=== PATIENT | male | born 1975 | race Caucasian/White ===

== ENCOUNTER 2016-11-07 20:30 | Emergency (ER) | payer BC ==
[2016-11-07] MEDS ORDERED: Doxycycline 100 MG Cap PO ONE ×2 (20:31→21:34)
[2016-11-07 21:17] LABS: CHLORIDE,CL 99 mmol/L (101-111); SODIUM,NA 136 mmol/L (135-145)
[2016-11-07] MEDS ORDERED: Mupirocin Oint 22 GM Tube TOP ONE (21:34)
[2016-11-07] MEDS ORDERED: Insulin NPH/Insulin Regular,Human 70-30 100 Units/ML 10 ML Vial SUBCUT ONE (21:34)
[2016-11-07] MEDS ORDERED: cefTRIAXone 1 GM in Sodium Chloride 0.9% 50 ML IV ONE (21:34)
--- NOTE | 2016-11-07 21:38 | EDM.PDOC ---
ED HPI GENERAL MEDICAL PROBLEM - General Chief Complaint: Skin Complaint Stated Complaint: LEG HAS A CUT THAT IS NOT HEALED, [id number] Time Seen by Provider: 11/07/16 21:30 Source of Information: Reports: Patient History Limitations: Reports: No Limitations - History of Present Illness INITIAL COMMENTS - FREE TEXT/NARRATIVE: ED ambulatory with complaint of increasing redness to area on left lees, notes initial wound from scraping left lees on boat ladder approximately one month ago. Area has not healed. Areas to bilateral inner ankle at least one month old crusted, not healing but has been picking at them, Has not felt wll past few days feverish and chills. Notes is diabetic but diet controlled after losing 100 # over 2 years. Last A1c 9. - Related Data Allergies Allergy/AdvReac Type Severity Reaction Status Date / Time No Known Allergies Allergy Verified 11/07/16 20:44 Home Meds: Home Meds . [No Known Home Meds] 03/18/16 [History] Past Medical History HEENT History: Reports: None Cardiovascular History: Reports: None Respiratory History: Reports: Asthma Gastrointestinal History: Reports: None Genitourinary History: Reports: None Musculoskeletal History: Reports: None Neurological History: Reports: None Psychiatric History: Reports: None Endocrine/Metabolic History: Reports: Diabetes, Type II Hematologic History: Reports: None Immunologic History: Reports: None Oncologic (Cancer) History: Reports: None Dermatologic History: Reports: None - Infectious Disease History Infectious Disease History: Reports: Chicken Pox - Past Surgical History Head Surgeries/Procedures: Reports: None Social & Family History - Tobacco Use Smoking Status *Q: Never Smoker Second Hand Smoke Exposure: No - Caffeine Use Caffeine Use: Reports: Soda - Recreational Drug Use Recreational Drug Use: No ED ROS GENERAL - Review of Systems Review Of Systems: ROS reveals no pertinent complaints other than HPI. ED EXAM, SKIN/RASH Exam: See Below Exam Limited By: No Limitations General Appearance: Alert, No Apparent Distress Ears: Normal External Exam Throat/Mouth: Normal Inspection, Normal Voice Head: Atraumatic Neck: Normal Inspection Respiratory/Chest: No Respiratory Distress, Lungs Clear Cardiovascular: Normal Peripheral Pulses, Regular Rate, Rhythm Extremities: Redness (left lees) Neurological: Alert, Oriented, Normal Cognition Skin: Warm, Dry, Wound/Incision (left lees 1cm dark crusted central wound with 7cm circumfertial redness induration, no streaking slight sloughing of centralborders, .5mm round dark crusted areas to bilateral inner ankles without redness or swelling. ) Location, Skin: Lower Extremity, Right, Lower Extremity, Left Associated features: Warmth, Tenderness, Induration, Crusting. No: Weeping Course - Vital Signs Last Recorded V/S: Last Vital Signs Temp 98.6 F 11/07/16 20:51 Pulse 102 H 11/07/16 22:50 Resp 18 11/07/16 20:51 BP 161/94 H 11/07/16 22:50 Pulse Ox 96 11/07/16 20:51 - Orders/Labs/Meds Labs: Laboratory Tests 11/07/16 11/07/16 11/07/16 Range/Units 20:50 20:50 20:50 WBC 12.2 H (5.0-10.0) 10^3/uL RBC 5.31 (4.6-6.2) 10^6/uL Hgb 15.3 (14.0-18.0) g/dL Hct 43.1 (40.0-54.0) % MCV 81.2 (80-100) fL MCH 28.8 (27.0-34.0) pg MCHC 35.5 H (33.0-35.0) g/dL Plt Count 219 (150-450) 10^3/uL Neut % (Auto) 58.5 (42.2-75.2) % Lymph % (Auto) 24.9 (20.5-50.1) % [place] % (Auto) 12.8 H (2-8) % Eos % (Auto) 3.5 H (1.0-3.0) % Baso % (Auto) 0.3 (0.0-1.0) % Sodium 136 (135-145) mmol/L Potassium 3.9 (3.6-5.0) mmol/L Chloride 99 L (101-111) mmol/L Carbon Dioxide 26.0 (21.0-31.0) mmol/L Anion Gap 14.9 BUN 18 (7-18) mg/dL Creatinine 0.9 (0.6-1.3) mg/dL Est Cr Clr Drug Dosing TNP Estimated GFR (MDRD) > 60 BUN/Creatinine Ratio 20.00 Glucose 342 H (74-105) mg/dL POC Glucose (70-105) mg/dl Lactic Acid 1.1 (0.5-2.2) mmol/L Calcium 8.9 (8.4-10.2) mg/dl Total Bilirubin 0.7 (0.2-1.0) mg/dL AST 16 (10-42) IU/L ALT 20 (10-60) IU/L Alkaline Phosphatase 60 (42-121) IU/L Total Protein 7.3 (6.7-8.2) g/dl Albumin 3.7 (3.2-5.5) g/dl Globulin 3.6 Albumin/Globulin Ratio 1.03 11/07/16 Range/Units 22:22 WBC (5.0-10.0) 10^3/uL RBC (4.6-6.2) 10^6/uL Hgb (14.0-18.0) g/dL Hct (40.0-54.0) % MCV (80-100) fL MCH (27.0-34.0) pg MCHC (33.0-35.0) g/dL Plt Count (150-450) 10^3/uL Neut % (Auto) (42.2-75.2) % Lymph % (Auto) (20.5-50.1) % [place] % (Auto) (2-8) % Eos % (Auto) (1.0-3.0) % Baso % (Auto) (0.0-1.0) % Sodium (135-145) mmol/L Potassium (3.6-5.0) mmol/L Chloride (101-111) mmol/L Carbon Dioxide (21.0-31.0) mmol/L Anion Gap BUN (7-18) mg/dL Creatinine (0.6-1.3) mg/dL Est Cr Clr Drug Dosing Estimated GFR (MDRD) BUN/Creatinine Ratio Glucose (74-105) mg/dL POC Glucose 331 H (70-105) mg/dl Lactic Acid (0.5-2.2) mmol/L Calcium (8.4-10.2) mg/dl Total Bilirubin (0.2-1.0) mg/dL AST (10-42) IU/L ALT (10-60) IU/L Alkaline Phosphatase (42-121) IU/L Total Protein (6.7-8.2) g/dl Albumin (3.2-5.5) g/dl Globulin Albumin/Globulin Ratio Meds: Medications Discontinued Medications Generic Name Dose Route Start Last Admin Trade Name Leif PRN Reason Stop Dose Admin Doxycycline Hyclate 100 mg 11/07/16 21:34 11/07/16 21:47 Vibramycin PO 11/07/16 21:35 100 mg ONETIME ONE Administration Doxycycline Hyclate Confirm 11/07/16 22:00 11/07/16 22:03 Vibramycin Administered 11/07/16 22:01 Not Given Dose 100 mg .ROUTE .STK-MED ONE Doxycycline Hyclate 100 mg 11/07/16 20:31 Vibramycin PO 11/07/16 20:32 .STK-MED ONE Ceftriaxone Sodium 1 gm/ 50 mls @ 100 mls/hr 11/07/16 21:34 11/07/16 21:47 Sodium Chloride IV 11/07/16 22:03 100 mls/hr ONETIME ONE Administration Insulin Human Isoph/Insulin Regular 5 unit 11/07/16 21:34 11/07/16 21:48 Novolin 70-30 SUBCUT 11/07/16 21:35 5 units ONETIME ONE Administration Metoprolol Tartrate 2.5 mg 11/07/16 22:44 11/07/16 22:50 Lopressor IVPUSH 11/07/16 22:45 2.5 mg ONETIME ONE Administration Mupirocin 22 gm 11/07/16 21:34 11/07/16 22:03 Bactroban Oint TOP 11/07/16 21:35 Not Given ONETIME ONE Departure - Departure Time of Disposition: 21:38 Disposition: Home, Self-Care 01 Condition: Fair Clinical Impression: Skin infection Uncontrolled diabetes mellitus Qualifiers: Diabetes mellitus type: type 2 Diabetes mellitus complication status: with skin complications Diabetes mellitus complication detail: with other skin complication Diabetes mellitus local company intermodal truck driver insulin use: without local company intermodal truck driver use Qualified Code(s): E11.628 - Type 2 diabetes mellitus with other skin complications; E11.65 - Type 2 diabetes mellitus with hyperglycemia - Discharge Information Instructions: Diabetes and Foot Care Referrals: Laurel Fleming [Primary Care Provider] - Forms: ED Department Discharge Additional Instructions: clinic follow up this week doxycycline 100mg one twice daily for one week monitor diet until seen by PCP dressing change with antibacterial ointment 3 times daily urgent follow up if increased redness or fever
[2016-11-07] MEDS ORDERED: Doxycycline 100 MG Cap ONE (22:00)
[2016-11-07] MEDS ORDERED: Metoprolol Tartrate 5 MG/5 ML SDV IVPUSH ONE (22:44)
[2016-11-07 22:52] VITALS: BP 161/94
== END 2016-11-07 23:28 | disposition home or self-care (01) ==
LOC: DL.ED 20:30
DX: E11.628 Type 2 diabetes mellitus with other skin complications (principal); L08.9 Local infection of the skin and subcutaneous tissue, unspecified; J45.909 Unspecified asthma, uncomplicated
CPT/HCPCS: 36415; 80053; 82962; 83605; 85025; 87040; 96365; 96372; 96375; 99282; A9270; J0696; J1815; J7050; J3490

== ENCOUNTER 2019-09-17 21:55 | Emergency (ER) | payer BC ==
[2019-09-17 22:08] VITALS: BP 127/80; PULSE 102
[2019-09-17] MEDS ORDERED: Sodium Chloride 0.9% 10 ML Syringe FLUSH PRN (22:17)
--- NOTE | 2019-09-17 22:19 | EDM.PDOC ---
ED HPI GENERAL MEDICAL PROBLEM - General Chief Complaint: Neurological Problem Stated Complaint: ESPISODES OF NOT ABLE TO TALK, LIGHT HEADED Time Seen by Provider: 09/17/19 22:15 Source of Information: Reports: Patient, Family History Limitations: Reports: No Limitations - History of Present Illness INITIAL COMMENTS - FREE TEXT/NARRATIVE: Patient comes emergency department today with his with concerns of increasing confusion. The patient and the have noticed over the past month or so that every once in a while when he goes to do something he really does not know what he is doing. Like he told his that he was getting the debit card out of her purse when he grabbed the phone and told her that she could use the phone to put into the [employer] to get money. He realizes when these episodes are happening they are short and fleeting. He got into a car yesterday and he started to go somewhere and about 10 minutes later he suddenly could not remember why he was in the car where he was going or what he is doing. This is been going on for about a month just becoming more concerning and noticeable. He has no new change in his medication. No recent falls or trauma to his head. He was seen in the clinic earlier today for similar symptomatology and had laboratory evaluation as well as a CAT scan that was reported to them as normal and they do not know the laboratory results. He has had no fever or chills. No visual disturbances. No paresthesias of his upper or lower extremities. No change in the functionality of his upper or lower extremities. His memory seems to be intact otherwise he reports. - Related Data Allergies Allergy/AdvReac Type Severity Reaction Status Date / Time metformin Allergy Other Verified 09/17/19 23:33 sitagliptin Allergy Other Verified 09/17/19 23:33 Home Meds: Home Meds Albuterol [Take Home: Albuterol 18 GM, 1 INH Pack] 2 puff INH Q6HR PRN 09/17/19 [History] Aspirin [Aspirin EC] 81 mg PO DAILY 09/17/19 [History] Insulin Aspart [NovoLOG] 20 unit SQ TIDMEALS 09/17/19 [History] Insulin Glarg,Human.Rec.Analog [Lantus Solostar] 50 unit SUBCUT BEDTIME 09/17/19 [History] atorvaSTATin Calcium [Atorvastatin Calcium] 20 mg PO BEDTIME 09/17/19 [History] lisinopriL [Lisinopril] 10 mg PO DAILY 09/17/19 [History] Past Medical History HEENT History: Reports: None Cardiovascular History: Reports: None Respiratory History: Reports: Asthma Gastrointestinal History: Reports: None Genitourinary History: Reports: None Musculoskeletal History: Reports: None Neurological History: Reports: None Psychiatric History: Reports: None Endocrine/Metabolic History: Reports: Diabetes, Type II Hematologic History: Reports: None Immunologic History: Reports: None Oncologic (Cancer) History: Reports: None Dermatologic History: Reports: None - Infectious Disease History Infectious Disease History: Reports: Chicken Pox - Past Surgical History Head Surgeries/Procedures: Reports: None Social & Family History - Caffeine Use Caffeine Use: Reports: Soda ED ROS GENERAL - Review of Systems Review Of Systems: Comprehensive ROS is negative, except as noted in HPI. - Physical Exam Exam: See Below Exam Limited By: No Limitations General Appearance: Alert, WD/WN, No Apparent Distress Eye Exam: Bilateral Eye: EOMI, PERRL Ears: Normal External Exam, Normal Canal, Normal TMs Nose: Normal Inspection, Normal Mucosa Throat/Mouth: Normal Inspection, Normal Lips, Normal Oropharynx Head Exam: Atraumatic, Normocephalic Neck: Normal Inspection, Supple, Non-Tender Respiratory/Chest: No Respiratory Distress, Lungs Clear, Normal Breath Sounds, No Accessory Muscle Use, Chest Non-Tender Cardiovascular: Normal Peripheral Pulses, Regular Rate, Rhythm GI/Abdominal: Normal Bowel Sounds, Soft, Non-Tender (Male) Exam: Deferred Rectal (Males) Exam: Deferred Neuro Exam (Abbreviated): Alert, Oriented, CN II-XII Intact, Normal Cognition, Normal Gait, Normal Reflexes, No Motor/Sensory Deficits, Other (He able able to identify a pen and tell me what the pen is for. ). No: Inattentive, Confused, Disoriented, Slow to Respond, Memory Loss Remote Events, Memory Loss Recent Events, Abnormal Reflexes, Sensory/Motor Deficit DTR: 2+: Bicep (R), Bicep (L), Tricep (R), Tricep (L), Patella (R), Patella (L), Achilles (R), Achilles (L) Back Exam: Normal Inspection, Full Range of Motion Extremities: Normal Inspection, Normal Range of Motion, Non-Tender, Normal Capillary Refill Psychiatric: Normal Affect, Normal Mood Skin Exam: Warm, Dry, Intact, Normal Color, No Rash EKG INTERPRETATION EKG Date: 09/17/19 Time: 22:14 Rhythm: NSR Rate (Beats/Min): 45 [place]: Normal P-Wave: Present QRS: Normal ST-T: Normal QT: Normal Course - Vital Signs Last Recorded V/S: Last Vital Signs Temp 98.2 F 09/17/19 22:04 Pulse 102 H 09/17/19 22:04 Resp 18 09/17/19 22:04 BP 127/80 09/17/19 22:04 Pulse Ox 95 09/17/19 22:04 - Orders/Labs/Meds Orders: Active Orders 24 hr Category Date Time Status EKG Documentation Completion [RC] STAT Care 09/17/19 22:17 Active Peripheral IV Care [RC] . DIRECTED Care 09/17/19 22:17 Active Peripheral IV Insertion Adult [OM.PC] Stat Oth 09/17/19 22:17 Ordered Labs: Laboratory Tests 09/17/19 09/17/19 09/17/19 Range/Units 22:07 22:15 22:15 WBC 11.4 H (5.0-10.0) 10^3/uL RBC 5.55 (4.6-6.2) 10^6/uL Hgb 16.3 (14.0-18.0) g/dL Hct 46.4 (40.0-54.0) % MCV 83.6 (80-100) fL MCH 29.4 (27.0-34.0) pg MCHC 35.1 H (33.0-35.0) g/dL Plt Count 213 (150-450) 10^3/uL Neut % (Auto) 56.4 (42.2-75.2) % Lymph % (Auto) 22.4 (20.5-50.1) % [place] % (Auto) 11.0 H (2-8) % Eos % (Auto) 9.8 H (1.0-3.0) % Baso % (Auto) 0.4 (0.0-1.0) % Sodium 143 (136-145) mmol/L Potassium 3.6 (3.5-5.1) mmol/L Chloride 107 (98-107) mmol/L Carbon Dioxide 30 (21-32) mmol/L Anion Gap 9.6 (7-13) mEq/L BUN 20 H (7-18) mg/dL Creatinine 0.90 (0.70-1.30) mg/dL Est Cr Clr Drug Dosing 96.91 mL/min Estimated GFR (MDRD) > 60 BUN/Creatinine Ratio 22.2 (No establ ref range) Glucose 124 H (74-99) mg/dL POC Glucose 130 H (70-105) mg/dl Calcium 8.2 L (8.5-10.1) mg/dL Total Bilirubin 0.5 (0.2-1.0) mg/dL AST 27 (15-37) U/L ALT 79 H (16-63) U/L Alkaline Phosphatase 69 (46-116) U/L Ammonia (11-32) umol/L Troponin I < 0.017 (0.000-0.056) ng/mL Total Protein 6.5 (6.4-8.2) g/dL Albumin 3.3 L (3.4-5.0) g/dL Globulin 3.2 Albumin/Globulin Ratio 1.03 TSH, Ultra Sensitive 2.33 (0.36-3.74) uIU/mL Urine Color (YELLOW) Urine Appearance (CLEAR) Urine pH (5.0-9.0) Ur Specific [place] (1.005-1.030) Urine Protein (NEGATIVE) Urine Glucose (UA) (NEGATIVE) Urine Ketones (NEGATIVE) Urine Occult Blood (NEGATIVE) Urine Nitrite (NEGATIVE) Urine Bilirubin (NEGATIVE) Urine Urobilinogen (0.2-1.0) mg/dL Ur Leukocyte Esterase (NEGATIVE) Urine RBC /HPF Urine WBC (0-5/HPF) /HPF Ur Epithelial Cells (NOT SEEN) /HPF Amorphous Sediment (NOT SEEN) /HPF Urine Bacteria (0-FEW/HPF) /HPF Granular Casts (Auto) Fine Granular Casts (NOT SEEN) /LPF Urine Mucus (NOT SEEN) /LPF Urine Opiates Screen (NEGATIVE) Ur Oxycodone Screen (NEGATIVE) Urine Methadone Screen (NEGATIVE) Ur Barbiturates Screen (NEGATIVE) U Tricyclic Antidepress (NEGATIVE) Ur Phencyclidine Scrn (NEGATIVE) Ur Amphetamine Screen (NEGATIVE) U Methamphetamines Scrn (NEGATIVE) Urine MDMA Screen (NEGATIVE) U Benzodiazepines Scrn (NEGATIVE) Urine Cocaine Screen (NEGATIVE) U Marijuana (THC) Screen (NEGATIVE) Ethyl Alcohol < 3 (0) mg/dL 09/17/19 09/18/19 09/18/19 Range/Units 22:15 00:44 00:44 WBC (5.0-10.0) 10^3/uL RBC (4.6-6.2) 10^6/uL Hgb (14.0-18.0) g/dL Hct (40.0-54.0) % MCV (80-100) fL MCH (27.0-34.0) pg MCHC (33.0-35.0) g/dL Plt Count (150-450) 10^3/uL Neut % (Auto) (42.2-75.2) % Lymph % (Auto) (20.5-50.1) % [place] % (Auto) (2-8) % Eos % (Auto) (1.0-3.0) % Baso % (Auto) (0.0-1.0) % Sodium (136-145) mmol/L Potassium (3.5-5.1) mmol/L Chloride (98-107) mmol/L Carbon Dioxide (21-32) mmol/L Anion Gap (7-13) mEq/L BUN (7-18) mg/dL Creatinine (0.70-1.30) mg/dL Est Cr Clr Drug Dosing mL/min Estimated GFR (MDRD) BUN/Creatinine Ratio (No establ ref range) Glucose (74-99) mg/dL POC Glucose (70-105) mg/dl Calcium (8.5-10.1) mg/dL Total Bilirubin (0.2-1.0) mg/dL AST (15-37) U/L ALT (16-63) U/L Alkaline Phosphatase (46-116) U/L Ammonia 16 (11-32) umol/L Troponin I (0.000-0.056) ng/mL Total Protein (6.4-8.2) g/dL Albumin (3.4-5.0) g/dL Globulin Albumin/Globulin Ratio TSH, Ultra Sensitive (0.36-3.74) uIU/mL Urine Color Yellow (YELLOW) Urine Appearance Slightly cloudy (CLEAR) Urine pH 5.5 (5.0-9.0) Ur Specific [place] 1.025 (1.005-1.030) Urine Protein 100 H (NEGATIVE) Urine Glucose (UA) 500 H (NEGATIVE) Urine Ketones Negative (NEGATIVE) Urine Occult Blood Trace-lysed H (NEGATIVE) Urine Nitrite Negative (NEGATIVE) Urine Bilirubin Negative (NEGATIVE) Urine Urobilinogen 1.0 (0.2-1.0) mg/dL Ur Leukocyte Esterase Negative (NEGATIVE) Urine RBC 5-10 H /HPF Urine WBC 0-5 (0-5/HPF) /HPF Ur Epithelial Cells Rare (NOT SEEN) /HPF Amorphous Sediment Few (NOT SEEN) /HPF Urine Bacteria Few (0-FEW/HPF) /HPF Granular Casts (Auto) Few Fine Granular Casts Occasional H (NOT SEEN) /LPF Urine Mucus Few H (NOT SEEN) /LPF Urine Opiates Screen Negative (NEGATIVE) Ur Oxycodone Screen Negative (NEGATIVE) Urine Methadone Screen Negative (NEGATIVE) Ur Barbiturates Screen Negative (NEGATIVE) U Tricyclic Antidepress Negative (NEGATIVE) Ur Phencyclidine Scrn Negative (NEGATIVE) Ur Amphetamine Screen Negative (NEGATIVE) U Methamphetamines Scrn Negative (NEGATIVE) Urine MDMA Screen Negative (NEGATIVE) U Benzodiazepines Scrn Negative (NEGATIVE) Urine Cocaine Screen Negative (NEGATIVE) U Marijuana (THC) Screen Negative (NEGATIVE) Ethyl Alcohol (0) mg/dL Meds: Medications Discontinued Medications Generic Name Dose Route Start Last Admin Trade Name Leif PRN Reason Stop Dose Admin Sodium Chloride 10 ml 09/17/19 22:17 09/17/19 22:27 Saline Flush FLUSH 10 ml ASDIRECTED PRN Administration Keep Vein Open - Re-Assessments/Exams Free Text/Narrative Re-Assessment/Exam: 09/18/19 01:59 This patient's neurological exam and really his exam is rather unremarkable. His CT scan reviewed that was completed earlier today in the clinic is no bleeding no stroke no mass and is essentially normal. His ammonia is normal as well today just minimally elevated just by 2 points and I really do not feel that this would cause a symptomology. He does not appear encephalopathic at this time. His urine drug screen is negative. His EKG and troponin is negative as well. I am unsure of what is causing these episodic crescendoing episodes of memory loss or what they report is confusion. Going on for about a month. The next step for my guidance for him would be to discuss this again with his primary care tomorrow and consider MRI/MRA to look for structural abnormalities. If there is none next up would be EEG and echo carotid ultrasound and neuro logy. At this time I do not find any acute emergent neurological concerns in the emergency department. We will discharge him home with continued previous therapy. He and his are comfortable with this plan and his questions are answered. Departure - Departure Time of Disposition: 01:10 Disposition: Home, Self-Care 01 Clinical Impression: Episodic confusion - Discharge Information Instructions: Confusion Forms: ED Department Discharge Additional Instructions: Contact your PCP in the morning. Consider MRI MRA initially, then if negative EEG or Echo. Continue previous medications and therapies. Return to the ED if new or worsening symptoms. Sepsis Event Note (ED) - Evaluation Sepsis Screening Result: No Definite Risk - Focused Exam Vital Signs: Vital Signs Temp Pulse Resp BP Pulse Ox 09/17/19 22:04 98.2 F 102 H 18 127/80 95 - My Orders Last 24 Hours: My Active Orders 09/17/19 22:17 EKG Documentation Completion [RC] STAT Peripheral IV Care [RC] . DIRECTED Peripheral IV Insertion Adult [OM.PC] Stat - Assessment/Plan Last 24 Hours: My Active Orders 09/17/19 22:17 EKG Documentation Completion [RC] STAT Peripheral IV Care [RC] . DIRECTED Peripheral IV Insertion Adult [OM.PC] Stat Assessment:: Episodic confusion Plan: Contact your PCP in the morning. Consider MRI MRA initially, then if negative EEG or Echo. Continue previous medications and therapies. Return to the ED if new or worsening symptoms.
[2019-09-17 22:55] LABS: ANION GAP 9.6 mEq/L (7-13); CHLORIDE,CL 107 mmol/L (98-107); SODIUM,NA 143 mmol/L (136-145)
== END 2019-09-18 01:20 | disposition home or self-care (01) ==
LOC: DL.ED 21:55
DX: R41.0 Disorientation, unspecified (principal); J45.909 Unspecified asthma, uncomplicated; E11.9 Type 2 diabetes mellitus without complications; Z79.82 Long term (current) use of aspirin; Z79.4 Long term (current) use of insulin; Z79.899 Other long term (current) drug therapy; Z88.8 Allergy status to other drugs, medicaments and biological substances
CPT/HCPCS: 36415; 80053; 80305-QW; 80307; 81001; 82140; 82962; 84443; 84484; 85025; 93005; 99284-25

== ENCOUNTER 2020-05-25 16:12 | Emergency (ER) | payer BC, MEDICAID ==
--- NOTE | 2020-05-25 17:15 | EDM.PDOC ---
<Tresa Kumari - Last Filed: 05/25/20 17:08> ED HPI GENERAL MEDICAL PROBLEM - General Chief Complaint: Skin Complaint Stated Complaint: HEAD WOUND W/ STITCHES ISSUES Time Seen by Provider: 05/25/20 17:30 - Related Data Allergies Allergy/AdvReac Type Severity Reaction Status Date / Time metformin Allergy Other Verified 05/25/20 17:08 sitagliptin Allergy Other Verified 05/25/20 17:08 Home Meds: Home Meds Albuterol [Take Home: Albuterol 18 GM, 1 INH Pack] 2 puff INH Q6HR PRN 09/17/19 [History] Insulin Aspart [NovoLOG] 20 unit SQ TIDMEALS 09/17/19 [History] Insulin Glarg,Human.Rec.Analog [Lantus Solostar] 28 unit SUBCUT BEDTIME 09/17/19 [History] atorvaSTATin Calcium [Atorvastatin Calcium] 20 mg PO BEDTIME 09/17/19 [History] Aspirin 325 mg PO DAILY 05/25/20 [History] Escitalopram [Lexapro] 20 mg PO DAILY 05/25/20 [History] Multivitamin 1 tab PO DAILY 05/25/20 [History] Past Medical History HEENT History: Reports: None Cardiovascular History: Reports: None Respiratory History: Reports: Asthma Gastrointestinal History: Reports: None Genitourinary History: Reports: None Musculoskeletal History: Reports: None Neurological History: Reports: None Psychiatric History: Reports: None Endocrine/Metabolic History: Reports: Diabetes, Type II Hematologic History: Reports: None Immunologic History: Reports: None Oncologic (Cancer) History: Reports: None Dermatologic History: Reports: None - Infectious Disease History Infectious Disease History: Reports: Chicken Pox - Past Surgical History Head Surgeries/Procedures: Reports: None Social & Family History - Caffeine Use Caffeine Use: Reports: Soda Departure - Departure Disposition: Home, Self-Care 01 Clinical Impression: Wound infection after surgery - Discharge Information Instructions: Wound Infection, [id number] Forms: ED Department Discharge Care Plan Goals: The patient and his care provider were advised of the examination and lab results during the visit. A sample of the drainage was sent to lab for further analysis. The patient was given an oral dose of Keflex (500 mg) and Bactrim DS while in the ED. The patient was discharged with a script for Keflex (500 mg) #30 to take 1 by mouth 3 times per day for 10 days and Bactrim DS #20 to take 1 by mouth 2 times per day for 10 days. If the patient has any additional symptoms or concerns, the patient should either return to the ED or visit his primary care facility. Sepsis Event Note (ED) - Evaluation Sepsis Screening Result: No Definite Risk <Alhaji Schaefer - Last Filed: 05/28/20 20:04> ED HPI GENERAL MEDICAL PROBLEM - General Source of Information: Reports: Patient, Provider History Limitations: Reports: No Limitations - History of Present Illness INITIAL COMMENTS - FREE TEXT/NARRATIVE: This 44 yo male patient reports to the ED due to drainage and the wound opening up. The patient's care provider reports they noticed a large amount of yellow to green discharge from the area today (which is why they brought him to the Ed. The patient's original surgery was in [place] and they did not have any specific complications until the sutures were removed. Onset: Today Duration: Constant Location: Reports: Head Quality: Reports: Other Severity: Mild Improves with: Reports: None Worsens with: Reports: None Context: Reports: Other Associated Symptoms: Reports: No Other Symptoms ED ROS GENERAL - Review of Systems Review Of Systems: Comprehensive ROS is negative, except as noted in HPI. ED EXAM, SKIN/RASH Exam: See Below Exam Limited By: No Limitations General Appearance: Alert, WD/WN, Mild Distress Eye Exam: Bilateral Eye: EOMI, Normal Inspection, PERRL Ears: Normal External Exam, Normal Canal, Hearing Grossly Normal, Normal TMs Nose: Normal Inspection, Normal Mucosa, No Blood Throat/Mouth: Normal Inspection, Normal Lips, Normal Teeth, Normal Gums, Normal Oropharynx, Normal Voice, No Airway Compromise Neck: Normal Inspection, Supple, Non-Tender, Full Range of Motion Respiratory/Chest: No Respiratory Distress, Lungs Clear, Normal Breath Sounds, No Accessory Muscle Use, Chest Non-Tender Cardiovascular: Normal Peripheral Pulses, Regular Rate, Rhythm, No Edema, No Ga llop, No JVD, No Murmur, No Rub GI/Abdominal: Normal Bowel Sounds, Soft, Non-Tender, No Organomegaly, No Distention, No Abnormal Bruit, No Mass (Male) Exam: Deferred Rectal (Males) Exam: Deferred Back Exam: Normal Inspection, Full Range of Motion, NT Extremities: Normal Inspection, Normal Range of Motion, Non-Tender, No Pedal Edema, Normal Capillary Refill Neurological: Alert, Oriented, CN II-XII Intact, Normal Cognition, Normal Gait, Normal Reflexes, No Motor/Sensory Deficits Skin: Warm, Dry, Normal Color Location, Skin: Head Characteristics: Linear Associated features: Tenderness, Weeping Lymphatic: No Adenopathy Course - Vital Signs Last Recorded V/S: Last Vital Signs Temp 36.3 C 05/25/20 17:44 Pulse 89 05/25/20 17:44 Resp 20 05/25/20 17:44 BP 149/90 H 05/25/20 17:44 Pulse Ox 96 05/25/20 17:44 - Orders/Labs/Meds Labs: Laboratory Tests 05/25/20 05/25/20 05/25/20 Range/Units 17:52 17:52 17:52 WBC 9.2 (5.0-10.0) 10^3/uL RBC 5.00 (4.6-6.2) 10^6/uL Hgb 14.5 D (14.0-18.0) g/dL Hct 42.5 (40.0-54.0) % MCV 85.0 (80-100) fL MCH 29.0 (27.0-34.0) pg MCHC 34.1 (33.0-35.0) g/dL Plt Count 266 (150-450) 10^3/uL Neut % (Auto) 57.0 (42.2-75.2) % Lymph % (Auto) 25.4 (20.5-50.1) % [place] % (Auto) 10.8 H (2-8) % Eos % (Auto) 6.4 H (1.0-3.0) % Baso % (Auto) 0.4 (0.0-1.0) % Sodium 145 (136-145) mmol/L Potassium 5.2 H D (3.5-5.1) mmol/L Chloride 106 (98-107) mmol/L Carbon Dioxide 34 H (21-32) mmol/L Anion Gap 10.2 (7-13) mEq/L BUN 15 (7-18) mg/dL Creatinine 0.98 (0.70-1.30) mg/dL Est Cr Clr Drug Dosing TNP Estimated GFR (MDRD) > 60 BUN/Creatinine Ratio 15.3 (No establ ref range) Glucose 177 H (74-99) mg/dL Lactic Acid 1.0 (0.4-2.0) mmol/L Calcium 9.4 (8.5-10.1) mg/dL Total Bilirubin 0.4 (0.2-1.0) mg/dL AST 19 (15-37) U/L ALT 41 (16-63) U/L Alkaline Phosphatase 115 (46-116) U/L Total Protein 7.3 (6.4-8.2) g/dL Albumin 3.1 L (3.4-5.0) g/dL Globulin 4.2 Albumin/Globulin Ratio 0.74 Meds: Medications Discontinued Medications Generic Name Dose Route Start Last Admin Trade Name Freq PRN Reason Stop Dose Admin Bacitracin 1 dose 05/25/20 17:40 05/25/20 18:53 Bacitracin Oint 1 Gm U/D Packet TOP 05/25/20 17:41 1 dose ONETIME ONE Administration Cephalexin 500 mg 05/25/20 18:35 05/25/20 18:54 Cephalexin 500 Mg Cap PO 05/25/20 18:36 Not Given ONETIME ONE Trimethoprim/Sulfamethoxazole 1 tab 05/25/20 18:35 05/25/20 18:54 Sulfamethoxazole/Trimethoprim 800-160 Mg Tab PO 05/25/20 18:36 Not Given ONETIME ONE - Re-Assessments/Exams Free Text/Narrative Re-Assessment/Exam: 05/28/20 20:04 I have examined the patient. I have discussed findings and treatment plan with the PA student. I agree with the assessment and plan in the following students note. Departure - Departure Time of Disposition: 18:37 Condition: Fair - Discharge Information *PRESCRIPTION DRUG MONITORING PROGRAM REVIEWED*: Not Applicable *COPY OF PRESCRIPTION DRUG MONITORING REPORT IN PATIENT CAROL: Not Applicable
[2020-05-25] MEDS ORDERED: Bacitracin Oint 1 GM U/D Packet TOP ONE (17:40)
[2020-05-25 17:45] VITALS: BP 149/90; PULSE 89
[2020-05-25 18:16] LABS: ANION GAP 10.2 mEq/L (7-13); CHLORIDE,CL 106 mmol/L (98-107); SODIUM,NA 145 mmol/L (136-145)
[2020-05-25] MEDS ORDERED: Sulfamethoxazole/Trimethoprim 800-160 MG Tab PO ONE (18:35)
[2020-05-25] MEDS ORDERED: Cephalexin 500 MG Cap PO ONE (18:35)
== END 2020-05-25 18:50 | disposition home or self-care (01) ==
LOC: DL.ED 16:12
DX: T81.49XA Infection following a procedure, other surgical site, initial encounter (principal); J45.909 Unspecified asthma, uncomplicated; E11.9 Type 2 diabetes mellitus without complications; Z88.8 Allergy status to other drugs, medicaments and biological substances; Z79.82 Long term (current) use of aspirin; Z79.4 Long term (current) use of insulin; Z79.899 Other long term (current) drug therapy
CPT/HCPCS: 36415; 80053; 83605; 85025; 87040; 87070; 87077; 87186; 99283; 99284

== ENCOUNTER 2020-10-27 10:24 | Emergency (ER) | payer MEDICAID ==
--- NOTE | 2020-10-27 08:34 | EDM.PDOC ---
ED HPI GENERAL MEDICAL PROBLEM - General Chief Complaint: Head Injury Stated Complaint: IN [facility] [id number] Time Seen by Provider: 10/27/20 08:20 Source of Information: Reports: Patient, EMS, Family (Daughter) History Limitations: Reports: No Limitations - History of Present Illness INITIAL COMMENTS - FREE TEXT/NARRATIVE: This 45 yo male patient was brought to the ED by [facility] due to a ground level fall. The patient's daughter reports she was downstairs during the incident. The patient reports he got "caught in his wheelchair" this morning fell and hit his head. The patient reports he has some right sided rib pain at this time, but feels normal other than that. The patient's daughter reports when she got upstairs, the patient was lying on his side in the position. The patient reports no loss of consciousness before, during or after the fall. 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 Onset: Today Duration: Minutes: Location: Reports: Head, Chest (right rib pain) Quality: Reports: Ache, Dull Severity: Moderate Improves with: Reports: None Worsens with: Reports: None Context: Reports: Other Associated Symptoms: Reports: No Other Symptoms - Related Data Allergies Allergy/AdvReac Type Severity Reaction Status Date / Time metformin Allergy Other Verified 10/27/20 08:41 sitagliptin Allergy Other Verified 10/27/20 08:41 Home Meds: Home Meds Insulin Aspart [NovoLOG] 20 unit SQ TIDMEALS 09/17/19 [History] Insulin Glarg,Human.Rec.Analog [Lantus Solostar] 28 unit SUBCUT BEDTIME 09/17/19 [History] atorvaSTATin Calcium [Atorvastatin Calcium] 20 mg PO BEDTIME 09/17/19 [History] Aspirin 325 mg PO DAILY 05/25/20 [History] Escitalopram [Lexapro] 20 mg PO DAILY 05/25/20 [History] Multivitamin 1 tab PO DAILY 05/25/20 [History] Past Medical History HEENT History: Reports: None Cardiovascular History: Reports: None Respiratory History: Reports: Asthma Gastrointestinal History: Reports: None Genitourinary History: Reports: None Musculoskeletal History: Reports: None Neurological History: Reports: Other (See Below) 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 ED EXAM, HEAD INJURY - Physical Exam Exam: See Below Exam Limited By: No Limitations General Appearance: Alert, WD/WN, Mild Distress Head: Atraumatic, Normocephalic Nexus Criteria: No: Posterior, Midline Cervical Tenderness, Evidence of Intoxication, Altered Level of Consciousness, Focal Neurological Deficit, Painful Distraction Injuries Eyes: Bilateral Eye: EOMI, Normal Inspection, PERRL Ears: Normal External Exam, Normal Canal, Hearing Grossly Normal, Normal TMs Nose: Normal Inspection, Normal Mucousa, No Blood Throat/Mouth: Normal Inspection, Normal Lips, Normal Teeth, Normal Gums, Normal Oropharynx, Normal Voice, No Airway Compromise Neck: Non-Tender, Full Range of Motion, Normal Alignment, Normal Inspection Respiratory: No Respiratory Distress, Lungs Clear, Normal Breath Sounds, No Accessory Muscle Use, Chest Non-Tender Cardiovascular: Normal Peripheral Pulses, Regular Rate, Rhythm, No Edema, No Gallop, No JVD, No Murmur, No Rub GI/Abdominal Exam: Normal Bowel Sounds, Soft, Non-Tender, No Organomegaly, No Distention, No Abnormal Bruit, No Mass (Male) Exam: Deferred Rectal (Males) Exam: Deferred Back Exam: Full Range of Motion, Normal Inspection, NT Extremities: Other (Some chronic left hand and foot weakness) Neurologic: miller kiln dried salt II-XII nml As Tested, No Motor/Sensory Deficits, Alert, Normal Mood/Affect, Oriented x 3 Skin: Normal Color, Warm/Dry - Pratt Coma Score Best Eye Response (Pratt): (4) Open Spontaneously Best Verbal Response (Jameson): (5) Oriented Best Motor Response (Jameson): (6) Obeys Commands Pratt Total: 15 Course - Vital Signs Last Recorded V/S: Last Vital Signs Temp 97.8 F 10/27/20 08:24 Pulse 96 10/27/20 08:24 Resp 12 10/27/20 08:24 BP 114/75 10/27/20 08:24 Pulse Ox 95 10/27/20 08:24 - Orders/Labs/Meds Orders: Active Orders 24 hr Category Date Time Status Ribs 2V w Chest Rt [CR] Urgent Exams 10/27/20 08:29 Ordered - Radiology Interpretation Free Text/Narrative:: [facility] Final Radiology Report Call: [phone] assistance Online chat: [email or web address] Name: HAM HOUSTON Age: 45Years M Date: 10/27/2020 SSN: -- : 1975 Study: CT CERVICAL SPINE WO CONT Requesting Physician: Alhaji Schaefer Images: [phone] Addl Studies: Provided Clinical History: Ground level fall Contrast: Without Contrast Medium: Contrast Amount: Contrast Method: CONFIDENTIALITY STATEMENT This report is intended only for use by the referring physician, and only in accordance with law. If you received this in error, call [phone]. Page 1 of 1 PROCEDURE INFORMATION: Exam: CT Cervical Spine Without Contrast Exam date and time: 10/27/2020 8:58 AM Age: 45 years old Clinical indication: Other: Ground level fall TECHNIQUE: Imaging protocol: Computed tomography images of the cervical spine without contrast. Radiation optimization: All CT scans at this facility use at least one of these dose optimization techniques: automated exposure control; mA and/or kV adjustment per patient size (includes targeted exams where dose is matched to clinical indication); or iterative reconstruction. COMPARISON: CT Head wo Cont 09/17/2019 9:24 AM FINDINGS: Bones/joints: Hypertrophic changes are present involving the dens and anterior arch of C1. Discs/Spinal canal/Neural foramina: Mild disc space narrowing C3-C4. Lungs: Lung apices are normal. Soft tissues: Unremarkable. IMPRESSION: No evidence of cervical spine fracture. Remainder of findings as described above. Thank you for allowing us to participate in the care of your patient. Dictated and Authenticated by: Samra Cano MD 10/27/2020 9:36 AM Central Time ([place] & [place]) [facility] Final Radiology Report Call: [phone] assistance Online chat: [email or web address] Name: HAM HOUSTON Age: 45Years M Date: 10/27/2020 SSN: -- : 1975 Study: CT HEAD WO CONT Requesting Physician: Alhaji Schaefer Images: 175 Addl Studies: Provided Clinical History: Ground level fall Contrast: Without Contrast Medium: Contrast Amount: Contrast Method: Page 1 of 2 PROCEDURE INFORMATION: Exam: CT Head Without Contrast Exam date and time: 10/27/2020 8:58 AM Age: 45 years old Clinical indication: Other: Ground level fall TECHNIQUE: Imaging protocol: Computed tomography of the head without contrast. Radiation optimization: All CT scans at this facility use at least one of these dose optimization techniques: automated exposure control; mA and/or kV adjustment per patient size (includes targeted exams where dose is matched to clinical indication); or iterative reconstruction. Other technique: STROKE PROTOCOL was implemented. COMPARISON: CT Head wo Cont 09/17/2019 9:24 AM FINDINGS: Brain: Prominent sulci. Patchy hypodensity of the cerebral white matter which are nonspecific but likely secondary to microangiopathic changes. 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 Cerebral ventricles: The ventricles are prominent secondary to diffuse volume loss/atrophy. Paranasal sinuses: Mild mucoperiosteal thickening of the paranasal sinuses. Mastoid air cells: Visualized mastoid air cells are well aerated. Bones/joints: Interval appearance of postsurgical changes in the left hemisphere with left frontotemporal encephalomalacia and overlying craniotomy/craniectomy defects. Left MCA stent or clip is noted. Soft tissues: Unremarkable. IMPRESSION: 1. Interval appearance of postsurgical changes in the left hemisphere with left frontotemporal encephalomalacia and overlying craniotomy/craniectomy defects. Left MCA stent or clip is noted. HAM HOUSTON | Final Radiology Report CONFIDENTIALITY STATEMENT This report is intended only for use by the referring physician, and only in accordance with law. If you received this in error, call [phone]. Page 2 of 2 2. Remainder of findings as described above. ASSESSMENT: ASPECTS ([place] Stroke Program Early CT Score) is 10. Thank you for allowing us to participate in the care of your patient. Dictated and Authenticated by: Samra Cano MD 10/27/2020 9:31 AM Central Time ([place] & [place]) [facility] Final Radiology Report Call: [phone] assistance Online chat: [email or web address] Name: HAM HOUSTON Age: 45Years M Date: 10/27/2020 SSN: -- : 1975 Study: CR RIBS 2V W CHEST RT Requesting Physician: Alhaji Schaefer Images: 3 Addl Studies: Provided Clinical History: Ground level fall Contrast: Contrast Medium: Contrast Amount: Contrast Method: CONFIDENTIALITY STATEMENT This report is intended only for use by the referring physician, and only in accordance with law. If you received this in error, call [phone]. Page 1 of 1 PROCEDURE INFORMATION: Exam: XR Right Ribs with PA Chest Exam date and time: 10/27/2020 9:34 AM Age: 45 years old Clinical indication: Pain; Other: RT rib; Additional info: Ground level fall TECHNIQUE: Imaging protocol: XR Right ribs with PA chest. Views: 3 views COMPARISON: CT Cervical Spine wo Cont 10/27/2020 8:58 AM FINDINGS: Lungs: Unremarkable. No consolidation. Pleural spaces: Unremarkable. No pleural effusion. No pneumothorax. Heart/Mediastinum: Unremarkable. No cardiomegaly. Bones/joints: Unremarkable. IMPRESSION: No acute findings. Thank you for allowing us to participate in the care of your patient. Dictated and Authenticated by: Samra Cano MD 10/27/2020 10:14 AM Central Time ([place] & [place]) Departure - Departure Time of Disposition: 10:22 Disposition: Home, Self-Care 01 Condition: Fair Clinical Impression: Fall from ground level Right shoulder strain Qualifiers: Encounter type: initial encounter Qualified Code(s): S46.911A - Strain of unspecified muscle, fascia and tendon at shoulder and upper arm level, right arm, initial encounter Contusion of rib on right side Qualifiers: Encounter type: initial encounter Qualified Code(s): S20.211A - Contusion of right front wall of thorax, initial encounter - Discharge Information *PRESCRIPTION DRUG MONITORING PROGRAM REVIEWED*: Not Applicable *COPY OF PRESCRIPTION DRUG MONITORING REPORT IN PATIENT CAROL: Not Applicable Instructions: Muscle Strain, [id number], Rib Contusion Forms: ED Department Discharge Care Plan Goals: The patient and family were advised of the examination, lab, x-ray and CT results during the visit. The patient was encouraged to rest and relax over the next 24 hours. If the patient has any additional symptoms or concerns, the patient should either return to the emergency department or visit his primary care facility. Sepsis Event Note (ED) - Focused Exam Vital Signs: Vital Signs Temp Pulse Resp BP Pulse Ox 10/27/20 08:24 97.8 F 96 12 114/75 95 - My Orders Last 24 Hours: My Active Orders 10/27/20 08:29 Ribs 2V w Chest Rt [CR] Urgent - Assessment/Plan Last 24 Hours: My Active Orders 10/27/20 08:29 Ribs 2V w Chest Rt [CR] Urgent
[2020-10-27 08:41] VITALS: BP 114/75; PULSE 96
--- NOTE | 2020-10-27 09:31 | CT ---
PROCEDURE INFORMATION: Exam: CT Head Without Contrast Exam date and time: 10/27/2020 8:58 AM Age: 45 years old Clinical indication: Other: Ground level fall TECHNIQUE: Imaging protocol: Computed tomography of the head without contrast. Radiation optimization: All CT scans at this facility use at least one of these dose optimization techniques: automated exposure control; mA and/or kV adjustment per patient size (includes targeted exams where dose is matched to clinical indication); or iterative reconstruction. Other technique: STROKE PROTOCOL was implemented. COMPARISON: CT Head wo Cont 09/17/2019 9:24 AM FINDINGS: Brain: Prominent sulci. Patchy hypodensity of the cerebral white matter which are nonspecific but likely secondary to microangiopathic changes. 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 Cerebral ventricles: The ventricles are prominent secondary to diffuse volume loss/atrophy. Paranasal sinuses: Mild mucoperiosteal thickening of the paranasal sinuses. Mastoid air cells: Visualized mastoid air cells are well aerated. Bones/joints: Interval appearance of postsurgical changes in the left hemisphere with left frontotemporal encephalomalacia and overlying craniotomy/craniectomy defects. Left MCA stent or clip is noted. Soft tissues: Unremarkable. IMPRESSION: 1. Interval appearance of postsurgical changes in the left hemisphere with left frontotemporal encephalomalacia and overlying craniotomy/craniectomy defects. Left MCA stent or clip is noted. 2. Remainder of findings as described above. ASSESSMENT: ASPECTS ([place] Stroke Program Early CT Score) is 10.
--- NOTE | 2020-10-27 09:36 | CT ---
PROCEDURE INFORMATION: Exam: CT Cervical Spine Without Contrast Exam date and time: 10/27/2020 8:58 AM Age: 45 years old Clinical indication: Other: Ground level fall TECHNIQUE: Imaging protocol: Computed tomography images of the cervical spine without contrast. Radiation optimization: All CT scans at this facility use at least one of these dose optimization techniques: automated exposure control; mA and/or kV adjustment per patient size (includes targeted exams where dose is matched to clinical indication); or iterative reconstruction. COMPARISON: CT Head wo Cont 09/17/2019 9:24 AM FINDINGS: Bones/joints: Hypertrophic changes are present involving the dens and anterior arch of C1. Discs/Spinal canal/Neural foramina: Mild disc space narrowing C3-C4. Lungs: Lung apices are normal. Soft tissues: Unremarkable. IMPRESSION: No evidence of cervical spine fracture. Remainder of findings as described above.
--- NOTE | 2020-10-27 10:14 | CR ---
PROCEDURE INFORMATION: Exam: XR Right Ribs with PA Chest Exam date and time: 10/27/2020 9:34 AM Age: 45 years old Clinical indication: Pain; Other: RT rib; Additional info: Ground level fall TECHNIQUE: Imaging protocol: XR Right ribs with PA chest. Views: 3 views COMPARISON: CT Cervical Spine wo Cont 10/27/2020 8:58 AM FINDINGS: Lungs: Unremarkable. No consolidation. Pleural spaces: Unremarkable. No pleural effusion. No pneumothorax. Heart/Mediastinum: Unremarkable. No cardiomegaly. Bones/joints: Unremarkable. IMPRESSION: No acute findings.
== END 2020-10-27 10:50 | disposition home or self-care (01) ==
LOC: DL.ED 10:24
DX: S46.911A Strain of unspecified muscle, fascia and tendon at shoulder and upper arm level, right arm, initial encounter (principal); S20.211A Contusion of right front wall of thorax, initial encounter; R53.1 Weakness; J45.909 Unspecified asthma, uncomplicated; E11.9 Type 2 diabetes mellitus without complications; Z86.73 Personal history of transient ischemic attack (TIA), and cerebral infarction without residual deficits; Z88.8 Allergy status to other drugs, medicaments and biological substances; Z79.4 Long term (current) use of insulin; Z79.82 Long term (current) use of aspirin; Z79.899 Other long term (current) drug therapy; W05.0XXA Fall from non-moving wheelchair, initial encounter; Y92.009 Unspecified place in unspecified non-institutional (private) residence as the place of occurrence of the external cause
CPT/HCPCS: 70450; 71101-RT; 72125; 99283; 99284-25

== ENCOUNTER 2021-04-01 23:43 | Emergency (ER) | payer BC ==
[2021-04-02 00:41] LABS: ANION GAP 10.5 mEq/L (7-13); CHLORIDE,CL 103 mmol/L (98-107); SODIUM,NA 142 mmol/L (136-145)
[2021-04-02] MEDS ORDERED: Ketorolac 30 MG/ML SDV IVPUSH ONE (00:44)
[2021-04-02] MEDS ORDERED: Bacitracin Oint 1 GM U/D Packet TOP ONE (00:52)
[2021-04-02 00:58] VITALS: BP 113/80; PULSE 97
[2021-04-02] MEDS ORDERED: Doxycycline Monohydrate 100 MG Cap PO ONE (01:05)
== END 2021-04-02 01:52 | disposition home or self-care (01) ==
LOC: DL.ED 23:43
DX: T81.40XA Infection following a procedure, unspecified, initial encounter (principal); R51.9 Headache, unspecified; E11.40 Type 2 diabetes mellitus with diabetic neuropathy, unspecified; Z88.5 Allergy status to narcotic agent; Z88.8 Allergy status to other drugs, medicaments and biological substances; Z79.4 Long term (current) use of insulin; Z79.899 Other long term (current) drug therapy; Z86.73 Personal history of transient ischemic attack (TIA), and cerebral infarction without residual deficits
CPT/HCPCS: 36415; 70450; 80053; 80307; 83605; 83735; 84100; 84443; 85025; 86140; 87070; 87077; 87186; 93005; 96374; 99285; A9270; J1885

== ENCOUNTER 2021-04-15 17:59 | Emergency (ER) | payer BC ==
[2021-04-15] MEDS ORDERED: Metoclopramide 10 MG/2 ML SDV IVPUSH ONE (18:34)
[2021-04-15] MEDS ORDERED: HYDROmorphone 0.5 MG/0.5 ML Syringe IVPUSH ONE ×2 (18:40→20:28)
[2021-04-15 19:14] LABS: ANION GAP 7.9 mEq/L (7-13); CHLORIDE,CL 105 mmol/L (98-107); SODIUM,NA 139 mmol/L (136-145)
[2021-04-15 19:58] VITALS: BP 143/93
[2021-04-15 20:06] VITALS: PULSE 89
== END 2021-04-15 20:56 ==
LOC: DL.ED 17:59
DX: S72.001A Fracture of unspecified part of neck of right femur, initial encounter for closed fracture (principal); E11.40 Type 2 diabetes mellitus with diabetic neuropathy, unspecified; J45.909 Unspecified asthma, uncomplicated; Z86.73 Personal history of transient ischemic attack (TIA), and cerebral infarction without residual deficits; Z88.5 Allergy status to narcotic agent; Z88.8 Allergy status to other drugs, medicaments and biological substances; Z79.4 Long term (current) use of insulin; Z79.82 Long term (current) use of aspirin; Z79.899 Other long term (current) drug therapy; Z20.822 Contact with and (suspected) exposure to COVID-19; X50.1XXA Overexertion from prolonged static or awkward postures, initial encounter
CPT/HCPCS: 36415; 73502; 73552; 73560; 80053; 85025; 87635; 93005; 96374; 96375; 96376; 99285; J1170; J2765; J3360; U0002

== ENCOUNTER 2021-06-25 19:44 | Emergency (ER) | payer BC, MEDICAID ==
[2021-06-25] MEDS ORDERED: Acetaminophen/oxyCODONE 325-5 MG Tab PO ONE ×2 (19:45→21:46)
[2021-06-25] MEDS ORDERED: Cephalexin 500 MG Cap PO ONE (19:45)
[2021-06-25 21:38] VITALS: BP 156/93; PULSE 95
[2021-06-25] MEDS ORDERED: Ondansetron 4 MG Tab.DIS PO ONE (21:45)
[2021-06-25] MEDS ORDERED: Diphtheria,Pertussis(Acell),Tetanus Vaccine 0.5 ML Syringe IM ONE (22:30)
[2021-06-25] MEDS ORDERED: Bacitracin Oint 1 GM U/D Packet TOP ONE (22:33)
[2021-06-25] MEDS ORDERED: Cephalexin 500 MG Cap ONE (23:20)
[2021-06-25] MEDS ORDERED: Acetaminophen/oxyCODONE 325-5 MG Tab ONE (23:20)
== END 2021-06-25 23:27 | disposition home or self-care (01) ==
LOC: DL.ED 19:44
DX: S52.201A Unspecified fracture of shaft of right ulna, initial encounter for closed fracture (principal); E11.40 Type 2 diabetes mellitus with diabetic neuropathy, unspecified; J45.909 Unspecified asthma, uncomplicated; Z86.73 Personal history of transient ischemic attack (TIA), and cerebral infarction without residual deficits; Z88.5 Allergy status to narcotic agent; Z88.8 Allergy status to other drugs, medicaments and biological substances; Z79.4 Long term (current) use of insulin; Z79.82 Long term (current) use of aspirin; Z23 Encounter for immunization; Z79.899 Other long term (current) drug therapy; W01.0XXA Fall on same level from slipping, tripping and stumbling without subsequent striking against object, initial encounter
CPT/HCPCS: 29125; 73110-RT; 90471; 90715; 99283-25; A9270-GY

== ENCOUNTER 2022-07-13 18:22 | Observation (INO) | payer MEDICARE, MEDICAID ==
[2022-07-13] MEDS ORDERED: Sodium Chloride 0.9% 10 ML Syringe FLUSH PRN (19:12)
[2022-07-13] MEDS ORDERED: Acetaminophen 500 MG Tab ONE (19:21)
[2022-07-13] MEDS ORDERED: Acetaminophen 500 MG Tab PO ONE (19:23)
[2022-07-13] MEDS ORDERED: Sodium Chloride 0.9% 1,000 ML IV ONE ×2 (19:24→20:50)
[2022-07-13 19:25] LABS: BASOPHILS PERCENT AUTO 0.3 % (0.0-1.0); EOSINOPHILS PERCENT AUTO 0.9 % (1.0-3.0); HEMATOCRIT 42.2 % (40.0-54.0); HEMOGLOBIN 14.5 g/dL (14.0-18.0); LYMPHOCYTES PERCENT AUTO 19.8 % (20.5-50.1); MEAN CORPUSCULAR HEMOGLOBIN 29.4 pg (27.0-34.0); MEAN CORPUSCULAR HGB CONC 34.4 g/dL (33.0-35.0); MEAN CORPUSCULAR VOLUME 85.6 fL (80-100); MONOCYTES PERCENT AUTO 14.3 % (2-8); NEUTROPHILS PERCENT AUTO 64.7 % (42.2-75.2); PLATELET COUNT,PLT 246 10^3/uL (150-450); RED BLOOD CELL COUNT 4.93 10^6/uL (4.6-6.2); WHITE BLOOD CELL COUNT,WBC 10.5 10^3/uL (5.0-10.0)
[2022-07-13 19:46] LABS: ALBUMIN 2.8 g/dL (3.4-5.0); ANION GAP 11.2 mEq/L (7-13); BILIRUBIN TOTAL 0.8 mg/dL (0.2-1.0); C-REACTIVE PROTEIN 9.7 mg/dL (0.0-0.9); CALCIUM 8.4 mg/dL (8.5-10.1); CREATININE 1.23 mg/dL (0.70-1.30); EST CRCL DRUG DOSING (CG) 71.83 mL/min; POTASSIUM,K 4.2 mmol/L (3.5-5.1); PROTEIN TOTAL,TP 7.2 g/dL (6.4-8.2)
[2022-07-13 19:47] LABS: A/G RATIO 0.64
[2022-07-13 20:05] LABS: APPEARANCE,URINE CLEAR (CLEAR); BILIRUBIN,URINE NEGATIVE (NEGATIVE); COLOR,URINE YELLOW (YELLOW); GLUCOSE,URINE 250 (NEGATIVE); KETONES,URINE NEGATIVE (NEGATIVE); LEUKOCYTE ESTERASE,URINE NEGATIVE (NEGATIVE); NITRITE,URINE NEGATIVE (NEGATIVE); OCCULT BLOOD,URINE MODERATE (NEGATIVE); PH,URINE 5.5 (5.0-9.0); PROTEIN,URINE 100 (NEGATIVE)
[2022-07-13 20:12] LABS: LACTIC ACID 1.1 mmol/L (0.4-2.0)
[2022-07-13 20:19] LABS: AMORPHOUS SEDIMENT,URINE FEW /HPF (NOT SEEN); BACTERIA,URINE MODERATE /HPF (0-FEW/HPF); EPITHELIAL CELLS,URINE FEW /HPF (NOT SEEN); MUCUS,URINE FEW /LPF (NOT SEEN); WBC,URINE 0-5 /HPF (0-5/HPF)
[2022-07-13] MEDS ORDERED: Ibuprofen 800 MG Tab PO ONE (20:42)
[2022-07-13] MEDS ORDERED: Glucagon,Human Recombinant 1 MG Vial IM PRN ×2 (23:28→23:30)
[2022-07-13] MEDS ORDERED: 50% Dextrose in Water 50 ML Syringe IVPUSH PRN ×2 (23:28→23:30)
[2022-07-13] MEDS ORDERED: Ondansetron 4 MG/2 ML SDV IVPUSH PRN (23:32)
[2022-07-13] MEDS ORDERED: Docusate Sodium 100 MG Cap PO PRN (23:32)
[2022-07-13] MEDS ORDERED: Acetaminophen/oxyCODONE 325-5 MG Tab PO PRN (23:32)
[2022-07-13] MEDS ORDERED: Acetaminophen 325 MG Tab PO PRN (23:32)
[2022-07-13] MEDS ORDERED: Bisacodyl 5 MG Tab PO PRN (23:32)
[2022-07-14 06:23] LABS: BASOPHILS PERCENT AUTO 0.5 % (0.0-1.0); EOSINOPHILS PERCENT AUTO 4.6 % (1.0-3.0); HEMATOCRIT 39.8 % (40.0-54.0); HEMOGLOBIN 13.2 g/dL (14.0-18.0); MEAN CORPUSCULAR HEMOGLOBIN 29.3 pg (27.0-34.0); MEAN CORPUSCULAR HGB CONC 33.2 g/dL (33.0-35.0); MEAN CORPUSCULAR VOLUME 88.2 fL (80-100); MONOCYTES PERCENT AUTO 17.2 % (2-8); NEUTROPHILS PERCENT AUTO 53.7 % (42.2-75.2); PLATELET COUNT,PLT 204 10^3/uL (150-450); RED BLOOD CELL COUNT 4.51 10^6/uL (4.6-6.2); WHITE BLOOD CELL COUNT,WBC 8.3 10^3/uL (5.0-10.0)
[2022-07-14] MEDS: buPROPion 150 MG Tab.ER PO SCH (08:10)
[2022-07-14] MEDS: Aspirin 325 MG Tab PO SCH (08:11)
[2022-07-14] MEDS: Enoxaparin 40 MG/0.4 ML Syringe SUBCUT SCH (08:11)
[2022-07-14] MEDS: Escitalopram 10 MG Tab PO SCH (08:11)
[2022-07-14] MEDS: atorvaSTATin 20 MG Tab PO SCH (08:11)
[2022-07-14] MEDS: Multivitamin Tab PO SCH (08:11)
[2022-07-14] MEDS: Insulin Lispro 100 Units/ML 3 ML Vial SUBCUT SCH ×3 (08:12→17:30)
[2022-07-14] MEDS: Midodrine 2.5 MG Tab PO SCH ×3 (08:13→17:29)
[2022-07-14] MEDS ORDERED: RISEDRONATE SODIUM 5 MG PO SCH (09:00)
[2022-07-14] MEDS ORDERED: Bacitracin/Neomycin/Polymyxin B Oint 28.4 GM Tube TOP PRN (09:04)
[2022-07-14] MEDS: Loratadine 10 MG Tab PO SCH (09:08)
[2022-07-14] MEDS ORDERED: Insulin Glarg,Human.Rec.Analog 100 Unit/ML SUBCUT SCH (21:00)
[2022-07-15] MEDS: Midodrine 2.5 MG Tab PO SCH (08:11)
[2022-07-15] MEDS: Insulin Lispro 100 Units/ML 3 ML Vial SUBCUT SCH (08:11)
[2022-07-15] MEDS: Aspirin 325 MG Tab PO SCH (08:12)
[2022-07-15] MEDS: buPROPion 150 MG Tab.ER PO SCH (08:12)
[2022-07-15] MEDS: atorvaSTATin 20 MG Tab PO SCH (08:12)
[2022-07-15] MEDS: Escitalopram 10 MG Tab PO SCH (08:12)
[2022-07-15] MEDS: Multivitamin Tab PO SCH (08:12)
[2022-07-15] MEDS: Loratadine 10 MG Tab PO SCH (08:12)
[2022-07-15] MEDS: Enoxaparin 40 MG/0.4 ML Syringe SUBCUT SCH (08:12)
[2022-07-15 10:54] VITALS: BP 145/82; PULSE 86
== END 2022-07-15 10:38 | disposition home or self-care (01) ==
LOC: DL.ED 18:22 → DL.MS 20:57 → DL.ED 21:20
PROVIDERS: ADMIT Internal Medicine; ATTEND Internal Medicine
DX: E11.621 Type 2 diabetes mellitus with foot ulcer (principal); L97.519 Non-pressure chronic ulcer of other part of right foot with unspecified severity; E11.319 Type 2 diabetes mellitus with unspecified diabetic retinopathy without macular edema; E11.40 Type 2 diabetes mellitus with diabetic neuropathy, unspecified; E11.51 Type 2 diabetes mellitus with diabetic peripheral angiopathy without gangrene; I95.9 Hypotension, unspecified; J45.909 Unspecified asthma, uncomplicated; M25.471 Effusion, right ankle; S92.511A Displaced fracture of proximal phalanx of right lesser toe(s), initial encounter for closed fracture; Z79.4 Long term (current) use of insulin; Z79.899 Other long term (current) drug therapy; Z79.82 Long term (current) use of aspirin; Z88.8 Allergy status to other drugs, medicaments and biological substances; Z86.16 Personal history of COVID-19; Z86.73 Personal history of transient ischemic attack (TIA), and cerebral infarction without residual deficits
CPT/HCPCS: 36415; 73610-RT; 73630-RT; 80053; 80202; 81001; 82947; 83605; 84145; 85025; 85651; 86140; 87040; 87070; 87077; 87186; 96361; 96365; 96366; 96372; 96374; 96376; 99222; 99232; 99239; 99284; 99284-25; A9270-GY; G0378; J1650; J1815-GY; J3370; J3490; J7030; J7040; J7050

== ENCOUNTER 2022-09-18 03:54 | Emergency (ER) | payer MEDICARE, MEDICAID ==
[2022-09-18 04:19] VITALS: BP 151/84; PULSE 98
[2022-09-18] MEDS: Morphine 2 MG/ML SYRINGE IM ONE (04:48)
[2022-09-18] MEDS: Ketorolac 30 MG/ML SDV IM ONE (05:58)
[2022-09-18] MEDS: Take Home: Acetaminophen/oxyCODONE 325-5 MG, 5 Tab Pack PO ONE (06:08)
== END 2022-09-18 06:42 | disposition home or self-care (01) ==
LOC: DL.ED 03:54
DX: M25.551 Pain in right hip (principal); E11.40 Type 2 diabetes mellitus with diabetic neuropathy, unspecified; E11.319 Type 2 diabetes mellitus with unspecified diabetic retinopathy without macular edema; J45.909 Unspecified asthma, uncomplicated; Z86.73 Personal history of transient ischemic attack (TIA), and cerebral infarction without residual deficits; Z86.16 Personal history of COVID-19; W01.0XXA Fall on same level from slipping, tripping and stumbling without subsequent striking against object, initial encounter
CPT/HCPCS: 73502; 96372; 99284; A9270; J1885; J2270

== ENCOUNTER 2024-04-30 21:51 | Emergency (ER) | payer MEDICAID, MEDICARE ==
[2024-04-30 22:05] VITALS: BP 123/87; PULSE 112
[2024-04-30] MEDS: Bacitracin Oint 1 GM U/D Packet TOP ONE (22:15)
[2024-04-30] MEDS: Lidocaine 1% 5 ML VIAL ONE (22:21)
[2024-04-30] MEDS: Lidocaine 1% 5 ML VIAL INJECT ONE ×2 (22:26→22:38)
[2024-04-30] MEDS: Diphtheria,Pertussis(Acell),Tetanus Vaccine 0.5 ML Syringe IM ONE (22:26)
== END 2024-04-30 22:35 | disposition home or self-care (01) ==
LOC: DL.ED 21:51
DX: S61.012A Laceration without foreign body of left thumb without damage to nail, initial encounter (principal); E11.9 Type 2 diabetes mellitus without complications; Z88.8 Allergy status to other drugs, medicaments and biological substances; Z79.82 Long term (current) use of aspirin; Z79.899 Other long term (current) drug therapy; Z79.4 Long term (current) use of insulin; Z86.73 Personal history of transient ischemic attack (TIA), and cerebral infarction without residual deficits; Z86.16 Personal history of COVID-19; Z23 Encounter for immunization; W26.8XXA Contact with other sharp object(s), not elsewhere classified, initial encounter; Y93.89 Activity, other specified
CPT/HCPCS: 12001; 90471; 90715; 99282; 99282-25; A9270-GY; J2003

== ENCOUNTER 2024-08-30 13:39 | Emergency (ER) | payer MEDICARE ==
[2024-08-30] MEDS ORDERED: Sodium Chloride 0.9% 10 ML Syringe FLUSH PRN (13:50)
[2024-08-30 14:20] LABS: BASOPHILS PERCENT AUTO 0.3 % (0.0-1.0); EOSINOPHILS PERCENT AUTO 3.1 % (1.0-3.0); HEMATOCRIT 45.6 % (40.0-54.0); HEMOGLOBIN 15.7 g/dL (14.0-18.0); LYMPHOCYTES PERCENT AUTO 15.9 % (20.5-50.1); MEAN CORPUSCULAR HEMOGLOBIN 29.3 pg (27.0-34.0); MEAN CORPUSCULAR HGB CONC 34.4 g/dL (33.0-35.0); MEAN CORPUSCULAR VOLUME 85.2 fL (80-100); MONOCYTES PERCENT AUTO 11.7 % (2-8); PLATELET COUNT,PLT 247 10^3/uL (150-450); RED BLOOD CELL COUNT 5.35 10^6/uL (4.6-6.2); WHITE BLOOD CELL COUNT,WBC 10.8 10^3/uL (5.0-10.0)
[2024-08-30] MEDS: Lactated Ringers 1,000 ML IV SCH (14:31)
[2024-08-30] MEDS: Ondansetron 4 MG/2 ML SDV IVPUSH ONE (14:31)
[2024-08-30 14:35] LABS: INR 1.1 (0.9-1.2); PROTHROMBIN TIME 11.1 SEC (9.0-12.0)
[2024-08-30 14:43] LABS: A/G RATIO 0.9; ALANINE AMINOTRANSFERASE,ALT 34 U/L (16-63); ALBUMIN 3.7 g/dL (3.4-5.0); ALKALINE PHOSPHATASE 115 U/L (46-116); ANION GAP 14.4 mEq/L (7-13); ASPARTATE AMNIOTRANSFERASE,AST 16 U/L (15-37); BILIRUBIN TOTAL 0.9 mg/dL (0.2-1.0); BLOOD UREA NITROGEN,BUN 32 mg/dL (7-18); BUN/CREATININE RATIO 19.4 (No establ ref range); CALCIUM 9.6 mg/dL (8.5-10.1); CARBON DIOXIDE,CO2 30 mmol/L (21-32); CHLORIDE,CL 101 mmol/L (98-107); CREATININE 1.65 mg/dL (0.70-1.30); GLUCOSE RANDOM 199 mg/dL (70-99); LIPASE 25 U/L (16-77); MAGNESIUM 1.9 mg/dL (1.8-2.4); POTASSIUM,K 4.4 mmol/L (3.5-5.1); PROTEIN TOTAL,TP 7.6 g/dL (6.4-8.2); SODIUM,NA 141 mmol/L (136-145)
[2024-08-30 14:47] LABS: B-TYPE NATRIURETIC PEPTIDE,BNP < 5 pg/ml (0-100); C-REACTIVE PROTEIN < 0.50 ng/dL (<=0.50); ESTIMATED GFR 50 mL/min (>=60)
[2024-08-30] MEDS: Iopamidol 612 MG/ML 100 ML Bottle IVPUSH ONE (15:11)
[2024-08-30] MEDS ORDERED: Lactated Ringers 1,000 ML IV SCH (15:15)
[2024-08-30 16:46] VITALS: BP 201/105; PULSE 97
[2024-08-30] MEDS: Azithromycin 250 MG Tab PO ONE (16:58)
[2024-08-30] MEDS: Take Home: Ondansetron 4 MG Tab.DIS, 5 Tab Pack PO ONE (17:10)
[2024-08-30] MEDS: Take Home: Azithromycin 250 MG, 2 Tab Pack PO ONE (17:10)
== END 2024-08-30 17:50 | disposition home or self-care (01) ==
LOC: DL.ED 13:39
DX: E86.0 Dehydration (principal); J18.9 Pneumonia, unspecified organism; N17.9 Acute kidney failure, unspecified; E78.5 Hyperlipidemia, unspecified; E11.9 Type 2 diabetes mellitus without complications; Z88.8 Allergy status to other drugs, medicaments and biological substances; Z79.82 Long term (current) use of aspirin; Z79.4 Long term (current) use of insulin; Z79.899 Other long term (current) drug therapy; Z79.01 Long term (current) use of anticoagulants; Z79.51 Long term (current) use of inhaled steroids; Z86.73 Personal history of transient ischemic attack (TIA), and cerebral infarction without residual deficits; Z86.16 Personal history of COVID-19
CPT/HCPCS: 36415; 74177; 80053; 83605; 83690; 83735; 83880; 84484; 85025; 85610; 86140; 93005; 93010; 96361; 96374; 99284; 99285-25; A9270-GY; J2405; J7120; Q0162; Q9967

== ENCOUNTER 2024-10-12 21:27 | Emergency (ER) | payer MEDICARE ==
[2024-10-12] MEDS: Ondansetron 4 MG/2 ML SDV IVPUSH ONE (21:53)
[2024-10-12 21:56] LABS: BASOPHILS PERCENT AUTO 0.5 % (0.0-1.0); EOSINOPHILS PERCENT AUTO 4.8 % (1.0-3.0); LYMPHOCYTES PERCENT AUTO 20.6 % (20.5-50.1); MONOCYTES PERCENT AUTO 10.5 % (2-8); NEUTROPHILS PERCENT AUTO 63.6 % (42.2-75.2); PLATELET COUNT,PLT 216 10^3/uL (150-450); RED BLOOD CELL COUNT 5.31 10^6/uL (4.6-6.2); WHITE BLOOD CELL COUNT,WBC 10.8 10^3/uL (5.0-10.0)
[2024-10-12 22:16] LABS: ALANINE AMINOTRANSFERASE,ALT 34 U/L (16-63); ASPARTATE AMNIOTRANSFERASE,AST 17 U/L (15-37); BILIRUBIN TOTAL 0.3 mg/dL (0.2-1.0); BLOOD UREA NITROGEN,BUN 28 mg/dL (7-18); CARBON DIOXIDE,CO2 29 mmol/L (21-32); CHLORIDE,CL 104 mmol/L (98-107); CREATINE KINASE,CK 61 U/L (39-308); CREATININE 1.35 mg/dL (0.70-1.30); GLUCOSE RANDOM 113 mg/dL (70-99); POTASSIUM,K 4.3 mmol/L (3.5-5.1); PROTEIN TOTAL,TP 6.7 g/dL (6.4-8.2); SODIUM,NA 141 mmol/L (136-145)
[2024-10-12 22:17] LABS: A/G RATIO 0.97; ESTIMATED GFR 64 mL/min (>=60); LACTIC ACID 2.0 mmol/L (0.4-2.0)
[2024-10-12] MEDS: Take Home: Acetaminophen/HYDROcodone 325-5 MG, 5 Tab Pack PO ONE (23:07)
[2024-10-12 23:25] VITALS: BP 171/97; PULSE 93
== END 2024-10-12 23:21 | disposition home or self-care (01) ==
LOC: DL.ED 21:27
DX: S52.501A Unspecified fracture of the lower end of right radius, initial encounter for closed fracture (principal); S42.301A Unspecified fracture of shaft of humerus, right arm, initial encounter for closed fracture; S20.211A Contusion of right front wall of thorax, initial encounter; E11.9 Type 2 diabetes mellitus without complications; Z88.8 Allergy status to other drugs, medicaments and biological substances; Z79.82 Long term (current) use of aspirin; Z79.4 Long term (current) use of insulin; Z79.899 Other long term (current) drug therapy; Z86.16 Personal history of COVID-19; W05.0XXA Fall from non-moving wheelchair, initial encounter
CPT/HCPCS: 36415; 70450; 71045; 72125; 73060; 80053; 82550; 83605; 83690; 83735; 84484; 85025; 93005; 96361; 96374; 96375; 99285; A9270; J2270; J2405; J2765; J7030

== ENCOUNTER 2024-10-14 16:28 | Emergency (ER) | payer MEDICARE ==
[2024-10-14] MEDS ORDERED: Sodium Chloride 0.9% 10 ML Syringe FLUSH PRN (16:55)
[2024-10-14 17:31] LABS: BASOPHILS PERCENT AUTO 0.4 % (0.0-1.0); EOSINOPHILS PERCENT AUTO 3.5 % (1.0-3.0); LYMPHOCYTES PERCENT AUTO 15.7 % (20.5-50.1); MONOCYTES PERCENT AUTO 10.2 % (2-8); NEUTROPHILS PERCENT AUTO 70.2 % (42.2-75.2); PLATELET COUNT,PLT 217 10^3/uL (150-450); RED BLOOD CELL COUNT 5.16 10^6/uL (4.6-6.2); WHITE BLOOD CELL COUNT,WBC 11.1 10^3/uL (5.0-10.0)
[2024-10-14 17:51] LABS: A/G RATIO 0.9; ALANINE AMINOTRANSFERASE,ALT 29 U/L (16-63); ASPARTATE AMNIOTRANSFERASE,AST 11 U/L (15-37); BILIRUBIN TOTAL 0.7 mg/dL (0.2-1.0); BLOOD UREA NITROGEN,BUN 24 mg/dL (7-18); CARBON DIOXIDE,CO2 33 mmol/L (21-32); CHLORIDE,CL 102 mmol/L (98-107); CREATININE 1.26 mg/dL (0.70-1.30); GLUCOSE RANDOM 218 mg/dL (70-99); POTASSIUM,K 4.9 mmol/L (3.5-5.1); PROTEIN TOTAL,TP 7.2 g/dL (6.4-8.2); SODIUM,NA 141 mmol/L (136-145)
[2024-10-14 17:52] LABS: ESTIMATED GFR 69 mL/min (>=60)
[2024-10-14 17:55] LABS: KETONES,BLOOD NEGATIVE
[2024-10-14] MEDS: Ketorolac 30 MG/ML SDV IVPUSH ONE (18:10)
[2024-10-14 19:32] VITALS: BP 150/75; PULSE 80
== END 2024-10-14 19:39 | disposition home or self-care (01) ==
LOC: DL.ED 16:28
DX: M25.551 Pain in right hip (principal); R11.2 Nausea with vomiting, unspecified; J45.909 Unspecified asthma, uncomplicated; Z88.8 Allergy status to other drugs, medicaments and biological substances; Z79.82 Long term (current) use of aspirin; Z79.4 Long term (current) use of insulin; Z86.16 Personal history of COVID-19
CPT/HCPCS: 36415; 73700; 80053; 82009; 83735; 85025; 96374; 96375; 99284; J1885; J2765